=== PATIENT | female | born 1990 | race Two or more races ===

== ENCOUNTER 2018-03-31 22:52 | Emergency (ER) | payer SELFPAY ==
[~2018-03-31] VITALS: Ht 149.9 cm; Wt 90.7 kg
[2018-03-31] MEDS ORDERED: Tetracaine 0.5% Opth 4ml Soln RIGHT EYE ONE (23:45)
[2018-04-01] MEDS ORDERED: OCUFLOX5 ML RIGHT EYE (00:18)
[2018-04-01 00:59] VITALS: BP 119/83
[2018-04-01 01:00] VITALS: BP 119/83
--- NOTE | 2018-04-01 05:00 | Emergency Room Report ---
History of Present Illness General Chief Complaint: Eye Problems Source: Patient Present Illness HPI 28-year-old female presents ED for evaluation. States that there is a contact lens stuck on her right eye. From last night. She is unable to remove it. States her eyes are dry. Pain is throbbing, 9 out of 10, nonradiating. Has photophobia or blurry vision. No other aggravating relieving factors. Denies any other associated symptoms Allergies: Coded Allergies: No Known Allergies (Unverified , 03/31/18) Patient History Past Medical History: none Past Surgical History: none Pertinent Family History: none Social History: Denies: smoking, alcohol use, drug use Last Menstrual Period: 3 weeks ago Now: No Immunizations: UTD Reviewed Nursing Documentation: PMH: Agreed; PSxH: Agreed Nursing Documentation-PMH Past Medical History: No Stated History Review of Systems All Other Systems: negative except mentioned in HPI Physical Exam Vital Signs Date Time Temp Pulse Resp B/P (MAP) Pulse Ox O2 Delivery O2 Flow Rate FiO2 03/31/18 23:28 85 18 119/83 99 Room Air 04/01/18 00:59 98.0 Sp02 EP Interpretation: reviewed, normal General Appearance: no apparent distress, alert, GCS 15, non-toxic Head: normocephalic Eyes: right eye other - contact lens noted at 6 o clock; left eye normal inspection; bilateral eye PERRL, bilateral eye EOMI, bilateral eye visual acuity ENT: normal ENT inspection Neck: normal inspection Respiratory: normal inspection Cardiovascular #1: normal inspection Gastrointestinal: normal inspection Rectal: deferred Genitourinary: no CVA tenderness Musculoskeletal: normal inspection Neurologic: alert, oriented x3, responsive, motor strength/tone normal, sensory intact, speech normal Psychiatric: normal inspection Skin: normal inspection Lymphatic: normal inspection Medical Decision Making Diagnostic Impression: Primary Impression: Foreign body in eye Qualified Codes: T15.91XA - Foreign body on external eye, part unspecified, right eye, initial encounter ER Course Hospital Course 28-year-old male presents to ED with R eye pain, feel something in his eye Differential diagnoses include: conjunctivitis, traumatic iritis, foreign body, corneal abrasion Clinical course Patient placed on stretcher. After initial history, I applied tetracaine to the affected eye. Under direct visualization I was able to see the contact lens at the 6 o'clock position. Using sterile cotton swab and forceps I was able to grab and remove the contact lens without difficulty. Patient tolerated procedure without complication. Discussed findings with patient. We'll prescribe antibiotic eyedrops. Recommend follow-up with ophthalmology before using contact lenses Diagnosis - foreign body in eye Stable and discharged to home with prescription for Ocuflox. Followup with PMD/ Optho. Return to ED if symptoms recur or worsen Last Vital Signs Date Time Temp Pulse Resp B/P (MAP) Pulse Ox O2 Delivery O2 Flow Rate FiO2 04/01/18 01:00 98.0 96 18 119/83 99 Room Air Status: improved Disposition: HOME, SELF-CARE Condition: Stable Scripts Ofloxacin (OCUFLOX) 5 Ml Drops 1 DROP RIGHT EYE QID for 7 Days, ML Prov: Enoc Aranda MD 04/01/18 Referrals: Isaias Teran MD, Maziar M.D. MD NOT CHOSEN IPA/,REFERRING (PCP) Patient Instructions: Eye Foreign Body, [id number] Enoc Aranda MD Apr 01, 2018 05:00
== END 2018-04-01 00:20 | disposition home or self-care (01) ==
LOC: EMR 23:35
DX: T15.91XA Foreign body on external eye, part unspecified, right eye, initial encounter (principal); X58.XXXA Exposure to other specified factors, initial encounter; Y92.9 Unspecified place or not applicable
CPT/HCPCS: 99283